=== PATIENT | male | born 1970 | race Two or more races ===

== ENCOUNTER 2020-07-18 12:06 | Outpatient (CLI) | payer OTHER | END 2020-07-18 12:10 | disposition home or self-care (01) | LOC: LAB 12:06 | PROVIDERS: ATTEND Radiology Diagnostic Radiology | DX: N50.89 Other specified disorders of the male genital organs (principal) ==

== ENCOUNTER 2020-07-19 07:53 | Outpatient (CLI) | payer OTHER | END 2020-07-19 08:09 | disposition HB | LOC: TOM 07:53 | DX: N52.8 Other male erectile dysfunction (principal); N50.89 Other specified disorders of the male genital organs; C20 Malignant neoplasm of rectum; I10 Essential (primary) hypertension; N40.0 Benign prostatic hyperplasia without lower urinary tract symptoms; C18.8 Malignant neoplasm of overlapping sites of colon; N43.2 Other hydrocele ==

== ENCOUNTER 2020-08-21 10:19 | Emergency (ER) | payer OTHER ==
[~2020-08-21] VITALS: Ht 167.6 cm; Wt 88.5 kg
[2020-08-21] MEDS ORDERED: TOPROL XL25 M1 (10:35)
== END 2020-08-21 12:35 | disposition home or self-care (01) ==
LOC: ER 10:19
DX: I16.0 Hypertensive urgency (principal); I10 Essential (primary) hypertension

== ENCOUNTER 2020-08-25 08:09 | Outpatient (CLI) | payer OTHER ==
[~2020-08-25 08:09] MED LIST: TOPROL XL25 M1
== END 2020-08-25 08:36 | disposition home or self-care (01) ==
LOC: RAD 08:09
PROVIDERS: ATTEND Urology
DX: I10 Essential (primary) hypertension (principal); Z01.811 Encounter for preprocedural respiratory examination; E03.8 Other specified hypothyroidism; Z51.81 Encounter for therapeutic drug level monitoring

== ENCOUNTER 2020-08-25 08:57 | Outpatient (CLI) | payer OTHER | END 2020-08-25 09:08 | disposition home or self-care (01) | LOC: LAB 08:57 | PROVIDERS: ATTEND Urology | DX: N40.0 Benign prostatic hyperplasia without lower urinary tract symptoms (principal); E03.8 Other specified hypothyroidism; Z51.81 Encounter for therapeutic drug level monitoring; Z11.59 Encounter for screening for other viral diseases; Z03.818 Encounter for observation for suspected exposure to other biological agents ruled out; Z20.828 Contact with and (suspected) exposure to other viral communicable diseases; N43.2 Other hydrocele; C20 Malignant neoplasm of rectum; I10 Essential (primary) hypertension; N52.8 Other male erectile dysfunction; C18.8 Malignant neoplasm of overlapping sites of colon; N50.89 Other specified disorders of the male genital organs ==

== ENCOUNTER 2020-09-12 08:36 | Outpatient (CLI) | payer OTHER | END 2020-09-12 08:42 | disposition home or self-care (01) | LOC: LAB 08:36 | DX: I10 Essential (primary) hypertension (principal); Z00.00 Encounter for general adult medical examination without abnormal findings ==